=== PATIENT | female | born 1995 | race Caucasian/White ===

== ENCOUNTER 2017-07-19 03:12 | Emergency (ER) | END 2017-07-19 05:52 | disposition left against medical advice (07) ==

== ENCOUNTER 2017-07-31 01:30 | Emergency (ER) | END 2017-07-31 05:02 | disposition home or self-care (01) ==

== ENCOUNTER 2018-09-20 15:09 | Emergency (ER) | payer SELFPAY ==
[~2018-09-20] VITALS: Ht 162.6 cm; Wt 99.2 kg
[~2018-09-20 15:09] MED LIST: ACET500C5 PO; BENZ-6 PO; CEPH-443 PO; CIPR500T4 PO; FAMO-96 PO; IBUP-1542 PO; ONDA4TAB14 PO; RANI150T35 PO
[2018-09-20 15:18] VITALS: Ht 162.6 cm; Wt 99.2 kg
[2018-09-20] MEDS ORDERED: ONDANSETRON (ODT) 4 MG TAB ODT STA (15:34)
--- NOTE | 2018-09-20 15:39 | EN ---
Date/Time of Note Date/Time of Note DATE: 09/20/18 TIME: 15:38 ER Progress Note Medical screening [id number]-old female with 2-day history of right upper quadrant abdominal pain after eating. No known history of gallstones although family history. No fevers, vomiting. Also complains of bright red blood with stool. History of hemorrhoids. ED 2 appropriate for labs, rectal exam, symptomatic treatment. MIRA HERNANDEZ MD Sep 20, 2018 15:39
[2018-09-20] MEDS ORDERED: ACETAMINOPHEN 325 MG TAB PO ONE (16:00)
--- NOTE | 2018-09-20 17:31 | ERD ---
ER Documentation Chief Complaint Chief Complaint RUQ ABD PAIN, WORSE WITH EATING SINCE LAST THURSDAY. ALSO RECTAL BLEEDING HPI 23-year-old female with 2-day history of right upper quadrant abdominal pain after eating. No known history of gallstones although family history. No fevers, vomiting. Also complains of bright red blood with stool. History of hemorrhoids. She otherwise without complaint. Reports all vaccinations up-to- date no allergies to medications. Time examination patient nontoxic-appearing with a reassuring triage vital signs. ROS All systems reviewed and are negative except as per history of present illness. Medications Home Meds Active Scripts Cephalexin* (Keflex*) 500 Mg Capsule, 500 MG PO BID for 7 Days, CAP Prov:LEELA ZUNIGA-C 09/20/18 Acetaminophen* (Tylophen*) 500 Mg Capsule, 1 CAP PO Q6H PRN for PAIN AND OR ELEV ATED TEMP, #20 CAP Prov:LEELA ZUNIGA-C 09/20/18 Famotidine* (Pepcid*) 20 Mg Tablet, 20 MG PO BID for 4 Days, TAB Prov:LEELA ZUNIGA-C 09/20/18 Ranitidine Hcl* (Zantac*) 150 Mg Tablet, 150 MG PO BID PRN for EPIGASTRIC PAIN, #30 TAB Prov:YAMILA,SONIA 07/31/17 Ibuprofen* (Motrin*) 600 Mg Tab, 600 MG PO Q6, #30 TAB Prov:YAMILA,SONIA 07/31/17 Ibuprofen* (Motrin*) 600 Mg Tab, 600 MG PO Q6H PRN for PAIN AND OR ELEVATED TEMP, #30 TAB Prov:ANGELES LEIVA NP 03/02/17 Benzonatate* (Tessalon Perle*) 100 Mg Capsule, 100 MG PO Q8H PRN for COUGH, #20 CAP Prov:ANGELES LEIVA NP 03/02/17 Ondansetron (Ondansetron Odt) 4 Mg Tab.rapdis, 4 MG PO Q6H PRN for NAUSEA AND/OR VOMITING, #20 TAB Prov:ANGELES LEIVA NP 03/02/17 Reported Medications [none] Unknown Strength No Conflict Check 03/02/17 Allergies Allergies: Coded Allergies: No Known Allergy (Unverified , 07/19/17) PMhx/Soc History of Surgery: No Anesthesia Reaction: No Hx Neurological Disorder: No Hx Respiratory Disorders: No Hx Cardiac Disorders: No Hx Psychiatric Problems: Yes (Anxiety) Hx Miscellaneous Medical Probl: No Hx Alcohol Use: No Hx Substance Use: No Hx Tobacco Use: Yes Smoking Status: Current every day smoker FmHx Family History: No diabetes, No coronary disease, No other Physical Exam Vitals Vital Signs Date Temp Pulse Resp B/P (MAP) Pulse Ox O2 O2 Flow FiO2 Time Delivery Rate 09/20/18 98.9 76 22 125/77 100 Room Air 17:50 (93) 09/20/18 99.5 97 18 131/78 100 15:18 (95) Physical Exam I have reviewed the triage vital signs. Const: Well nourished, obese, well developed, appears stated age Eyes: PERRL, no conjunctival injection HENT: NCAT, Neck supple without meningismus CV: RRR, Warm, well-perfused extremities RESP: CTAB, Unlabored respiratory effort GI: soft, tenderness to deep palpation to right upper quadrant, no rebound or guarding,, non-distended, no masses MSK: No gross deformities appreciated Skin: Warm, dry. No rashes Neuro: grossly non focal Psych: Appropriate mood and affect. Result Diagram: 09/20/18 1639 09/20/18 1639 Results 24 hrs Laboratory Tests Test 09/20/18 16:39 09/20/18 16:45 White Blood Count 6.9 10^3/ul Red Blood Count 5.15 10^6/ul Hemoglobin 13.3 g/dl Hematocrit 41.4 % Mean Corpuscular Volume 80.4 fl Mean Corpuscular Hemoglobin 25.8 pg Mean Corpuscular Hemoglobin Concent 32.1 g/dl Red Cell Distribution Width 13.4 % Platelet Count 411 10^3/UL Mean Platelet Volume 9.9 fl Immature Granulocytes % 0.400 % Neutrophils % 56.9 % Lymphocytes % 28.5 % Monocytes % 11.2 % Eosinophils % 2.3 % Basophils % 0.7 % Nucleated Red Blood Cells % 0.0 /100WBC Immature Granulocytes # 0.030 10^3/ul Neutrophils # 3.9 10^3/ul Lymphocytes # 2.0 10^3/ul Monocytes # 0.8 10^3/ul Eosinophils # 0.2 10^3/ul Basophils # 0.1 10^3/ul Nucleated Red Blood Cells # 0.0 10^3/ul Urine Color YELLOW Urine Clarity SLIGHTLY CLOUDY Urine pH 6.0 Urine Specific [place] 1.021 Urine Ketones NEGATIVE mg/dL Urine Nitrite NEGATIVE mg/dL Urine Bilirubin NEGATIVE mg/dL Urine Urobilinogen NEGATIVE mg/dL Urine Leukocyte Esterase 3+ Nathan/ul Urine Microscopic RBC 9 /HPF Urine Microscopic WBC 2 /HPF Urine Squamous Epithelial Cells FEW /HPF Urine Mucus FEW /HPF Urine Hemoglobin 1+ mg/dL Urine Glucose NEGATIVE mg/dL Urine Total Protein NEGATIVE mg/dl Sodium Level 142 mmol/L Potassium Level 4.1 mmol/L Chloride Level 105 mmol/L Carbon Dioxide Level 28 mmol/L Anion Gap 9 Blood Urea Nitrogen 14 mg/dl Creatinine 0.69 mg/dl Est Glomerular Filtrat Rate mL/min > 60 mL/min Glucose Level 81 mg/dl Calcium Level 9.8 mg/dl Total Bilirubin 0.4 mg/dl Direct Bilirubin 0.00 mg/dl Indirect Bilirubin 0.4 mg/dl Aspartate Amino Transf (AST/SGOT) 23 IU/L Alanine Aminotransferase (ALT/SGPT) 26 IU/L Alkaline Phosphatase 79 IU/L Total Protein 8.9 g/dl Albumin 4.8 g/dl Globulin 4.10 g/dl Albumin/Globulin Ratio 1.17 Lipase 83 U/L POC Beta HCG, Qualitative NEGATIVE Current Medications Medications Dose Sig/Radhika Start Time Status Last (Trade) Ordered Route PRN Stop Time Admin Dose Reason Admin Ondansetron 8 mg ONCE STAT 09/20/18 DC HCl (Zofran ODT 15:34 Odt) 09/20/18 15:36 650 mg ONCE ONCE 09/20/18 DC 09/20/18 Acetaminophen PO 16:00 16:43 (Tylenol 09/20/18 16:01 Tab) Procedures/MDM 23 yo non- woman presenting with abdominal pain. Given patients test is negative, highly doubt ectopic . Considered causes of female-specific abdominal pain unrelated to (e.g., pelvic inflammatory disease with or without tubo-ovarian abscess, Yyye-Hooe-Kdscfa, e tc.). Also considered causes of abdominal pain that are not gender-specific (e.g., appendicitis, volvulus, small bowel obstruction, mesenteric adenitis, acute cholecystitis/choledocholithiasis and other biliary pathology, etc.). Patient well-appearing with normal vital signs. Laboratory testing and imaging here reviewed and normal. Patient given strict return precautions for worsening pain, inability to eat/drink, fevers (temperature over 100.4F), or other concerns. Patient instructed to follow up with their primary doctor and is agreeable; all questions were answered. ED course: Labs unremarkable UA with evidence of UTI we will treat with course of Keflex Gallbladder without acute finding,1. Borderline enlarged, echogenic liver, compatible with intrinsic liver disease. Liver enzymes within normal limits. Liver enzymes within normal limits. Patient advised to follow-up with PMD, diet changes advised DISPOSITION PLAN: We discussed follow up with the patient's primary care doctor within 24 to 48 hours. Patient counseled regarding my diagnostic impression and care plan. Prior to discharge all questions answered. Pt agrees with treatment plan and understands strict return precautions. Precautionary instructions provided including instructions to return to the ER if not improving or for any worsening or changing symptoms or concerns. Disclaimer: Inadvertent spelling and grammatical errors are likely due to EHR/dictation software use and do not reflect on the overall quality of patient care. Also, please note that the electronic time recorded on this note does not necessarily reflect the actual time of the patient encounter. Departure Diagnosis: Primary Impression: Abdominal pain Condition: Stable Patient Instructions: Abdominal Pain Referrals: [facility] YOU HAVE RECEIVED A MEDICAL SCREENING EXAM AND THE RESULTS INDICATE THAT YOU DO NOT HAVE A CONDITION THAT REQUIRES URGENT TREATMENT IN THE EMERGENCY DEPARTMENT. FURTHER EVALUATION AND TREATMENT OF YOUR CONDITION CAN WAIT UNTIL YOU ARE SEEN IN YOUR DOCTORS OFFICE WITHIN THE NEXT 1-2 DAYS. IT IS YOUR RESPONSIBILITY TO MAKE AN APPOINTMENT FOR FOLOW-UP CARE. IF YOU HAVE A PRIMARY DOCTOR --you should call your primary doctor and schedule an appointment IF YOU DO NOT HAVE A PRIMARY DOCTOR YOU CAN CALL OUR PHYSICIAN REFERRAL HOTLINE AT IF YOU CAN NOT AFFORD TO SEE A PHYSICIAN YOU CAN CHOSE FROM THE FOLLOWING [facility] CLINICS [facility] [address] [facility] [address] [facility]. [facility] [address] [facility] [address] [facility] [address] [facility]. [facility] [address] Additional Instructions: Call your primary care doctor TOMORROW for an appointment during the next 2-3 days.See the doctor sooner or return here if your condition worsens before your appointment time. LEELA ZUNIGA PA-C Sep 20, 2018 17:31
[2018-09-20 17:50] VITALS: BP 125/77; PULSE 76; RESP 22
== END 2018-09-20 17:51 | disposition home or self-care (01) ==
LOC: FTE 15:09
DX: R10.11 Right upper quadrant pain (principal); F17.210 Nicotine dependence, cigarettes, uncomplicated
CPT/HCPCS: 36415; 76705; 80053; 81001; 81025; 83690; 85025

== ENCOUNTER 2018-09-21 18:34 | Emergency (ER) | payer SELFPAY ==
[~2018-09-21] VITALS: Ht 162.6 cm; Wt 98.5 kg
[2018-09-21 19:06] VITALS: Ht 162.6 cm; Wt 98.5 kg
[2018-09-21] MEDS ORDERED: DIPHENHYDRAMINE 25 MG CAP PO ONE (20:00)
[2018-09-21] MEDS ORDERED: predniSONE 20 MG TAB PO ONE (20:00)
[2018-09-21 20:31] VITALS: BP 134/63; PULSE 84; RESP 18
--- NOTE | 2018-09-27 14:05 | ERD ---
ER Documentation Chief Complaint Chief Complaint Funny feeling/hot/cold flashes after taking Keflex this morning HPI This is a 23-year-old female presenting to the emergency department complaining of "feeling hot after taking Keflex" earlier today. The patient states this occurred after about 2 hours that she took the medication. She reported a full numbness and tingling sensation to her body which is resolved. She has no symptoms currently. She denies any back pain, fevers, chills, or other symptoms at this time. ROS All systems reviewed and are negative except as per history of present illness. Medications Home Meds Active Scripts Ciprofloxacin Hcl* (Ciprofloxacin Hcl*) 500 Mg Tablet, 500 MG PO BID for 7 Days, TAB Prov:SALVATORE SMITH PA-C 09/21/18 Cephalexin* (Keflex*) 500 Mg Capsule, 500 MG PO BID for 7 Days, CAP Prov:LEELA ZUNIGA PA-C 09/20/18 Acetaminophen* (Tylophen*) 500 Mg Capsule, 1 CAP PO Q6H PRN for PAIN AND OR ELEVATED TEMP, #20 CAP Prov:LEELA ZUNIGA PA-C 09/20/18 Famotidine* (Pepcid*) 20 Mg Tablet, 20 MG PO BID for 4 Days, TAB Prov:LEELA ZUNIGA PA-C 09/20/18 Ranitidine Hcl* (Zantac*) 150 Mg Tablet, 150 MG PO BID PRN for EPIGASTRIC PAIN, #30 TAB Prov:YAMILA,SONIA 07/31/17 Ibuprofen* (Motrin*) 600 Mg Tab, 600 MG PO Q6, #30 TAB Prov:YAMILA,SONIA 07/31/17 Ibuprofen* (Motrin*) 600 Mg Tab, 600 MG PO Q6H PRN for PAIN AND OR ELEVATED TEMP, #30 TAB Prov:ANGELES LEIVA NP 03/02/17 Benzonatate* (Tessalon Perle*) 100 Mg Capsule, 100 MG PO Q8H PRN for COUGH, #20 CAP Prov:ANGELES LEIVA NP 03/02/17 Ondansetron (Ondansetron Odt) 4 Mg Tab.rapdis, 4 MG PO Q6H PRN for NAUSEA AND/OR VOMITING, #20 TAB Prov:ANGELES LEIVA NP 03/02/17 Reported Medications [none] Unknown Strength No Conflict Check 03/02/17 Allergies Allergies: Coded Allergies: No Known Allergy (Unverified , 07/19/17) PMhx/Soc Medical and Surgical Hx: pt denies Surgical Hx History of Surgery: No Anesthesia Reaction: No Hx Neurological Disorder: No Hx Respiratory Disorders: No Hx Cardiac Disorders: No Hx Psychiatric Problems: Yes (Anxiety) Hx Miscellaneous Medical Probl: No Hx Alcohol Use: No Hx Substance Use: No Hx Tobacco Use: Yes Smoking Status: Current some day smoker FmHx Family History: No diabetes Physical Exam Physical Exam Const: No acute distress Head: Atraumatic Eyes: Normal Conjunctiva ENT: Normal External Ears, Nose and Mouth. Neck: Full range of motion. No meningismus. Resp: Clear to auscultation bilaterally Cardio: Regular rate and rhythm, no murmurs Abd: Soft, non tender, non distended. Normal bowel sounds Skin: No petechiae or rashes Back: No midline or flank tenderness Ext: No cyanosis, or edema Neur: Awake and alert Psych: Normal Mood and Affect Results 24 hrs Current Medications Medications Dose Sig/Radhika Start Time Status Last (Trade) Ordered Route PRN Stop Time Admin Dose Reason Admin 25 mg ONCE ONCE 09/21/18 DC 09/21/18 Diphenhydrami PO 20:00 19:59 ne HCl 09/21/18 20:01 (Benadryl) Prednisone 40 mg ONCE ONCE 09/21/18 DC 09/21/18 (Prednisone) PO 20:00 19:59 09/21/18 20:01 Procedures/MDM 23-year-old female presenting with signs and symptoms most consistent with allergy or drug intolerance to Keflex. Patient was being treated for UTI and her antibiotic will be changed to ciprofloxacin. There is no evidence of respiratory distress, anaphylaxis, acute surgical abdomen, sepsis, or other emergent process. Patient is stable and appropriate for further outpatient management and was advised to return immediately for new or concerning symptoms. Departure Diagnosis: Primary Impression: Allergy or intolerance to drug Condition: Fair Patient Instructions: Drug Reaction, Other Referrals: [facility] YOU HAVE RECEIVED A MEDICAL SCREENING EXAM AND THE RESULTS INDICATE THAT YOU DO NOT HAVE A CONDITION THAT REQUIRES URGENT TREATMENT IN THE EMERGENCY DEPARTMENT. FURTHER EVALUATION AND TREATMENT OF YOUR CONDITION CAN WAIT UNTIL YOU ARE SEEN IN YOUR DOCTORS OFFICE WITHIN THE NEXT 1-2 DAYS. IT IS YOUR RESPONSIBILITY TO MAKE AN APPOINTMENT FOR FOLOW-UP CARE. IF YOU HAVE A PRIMARY DOCTOR --you should call your primary doctor and schedule an appointment IF YOU DO NOT HAVE A PRIMARY DOCTOR YOU CAN CALL OUR PHYSICIAN REFERRAL HOTLINE AT IF YOU CAN NOT AFFORD TO SEE A PHYSICIAN YOU CAN CHOSE FROM THE FOLLOWING [facility] [address] [facility] [address] [facility] [facility] [address] [facility] [address] [facility]. [facility] [address] [facility]. [facility]. [address] Additional Instructions: Call your primary care doctor TOMORROW for an appointment during the next 1-2 days.See the doctor sooner or return here if your condition worsens before your appointment time. SALVATORE SMITH PA-C Sep 27, 2018 14:05
== END 2018-09-21 20:31 | disposition home or self-care (01) ==
LOC: FTE 18:34
DX: R20.0 Anesthesia of skin (principal); T36.1X5A Adverse effect of cephalosporins and other beta-lactam antibiotics, initial encounter; F17.210 Nicotine dependence, cigarettes, uncomplicated
CPT/HCPCS: 99283; J7512